=== PATIENT | female | born 1950 | race Caucasian/White ===

== ENCOUNTER 2024-07-27 23:12 | Emergency (ER) | payer MEDICARE, MEDICAID ==
[~2024-07-27] VITALS: Ht 157.5 cm; Wt 64.0 kg
[2024-07-27 23:22] VITALS: TEMP 98.2; O2SAT 96
[2024-07-28 00:52] LABS: HEMATOCRIT. 41.1 % (36.0-48.0); HEMOGLOBIN. 13.6 g/dL (12.0-16.0); MEAN CORPUSCULAR HEMOGLOBIN 30.8 pg (28.0-32.0); MEAN CORPUSCULAR HGB CONC 33.1 g/dL (31.0-37.0); MEAN CORPUSCULAR VOLUME 92.9 fL (81.0-99.0); MEAN PLATELET VOLUME 9.6 fl (7.4-10.4); PLATELET 175 x1000/uL (130-400); RED BLOOD CELL COUNT 4.43 mill/uL (4.2-5.4); RED CELL DISTRIBUTION WIDTH 13.8 % (11.6-14.6); WHITE BLOOD COUNT 11.9 x1000/uL (4.5-11.0)
[2024-07-28 00:55] LABS: DIFFERENTIAL COMMENT 1
[2024-07-28 00:57] LABS: CHLORIDE 104 mEq/L (98-107); POTASSIUM 4.1 mEq/L (3.5-5.1); SODIUM 139 mEq/L (136-145)
[2024-07-28 00:58] LABS: CALCIUM 9.8 mg/dL (8.7-10.4); CARBON DIOXIDE 23 mEq/L (21-32)
[2024-07-28 01:03] LABS: GLUCOSE 253 mg/dL (70-105); UREA NITROGEN BLOOD 17 mg/dL (9-23)
[2024-07-28 02:10] LABS: TROPONIN I HIGH SENSITIVITY < 4 ng/L (3.0-34)
[2024-07-28 02:11] LABS: ETHANOL BLOOD < 10 mg/dL (<10)
[2024-07-28 03:27] LABS: TROPONIN I HIGH SENSITIVITY < 4 ng/L (3.0-34)
[2024-07-28 04:03] VITALS: BP 175/88; PULSE 81; RESP 18; O2SAT 100
[2024-07-28 05:23] LABS: PLATELET ESTIMATE NORMAL
== END 2024-07-28 04:04 | disposition home or self-care (01) ==
LOC: ER 23:12
DX: T65.91XA Toxic effect of unspecified substance, accidental (unintentional), initial encounter (principal); R41.82 Altered mental status, unspecified; E11.9 Type 2 diabetes mellitus without complications; I10 Essential (primary) hypertension; Y92.89 Other specified places as the place of occurrence of the external cause
CPT/HCPCS: 36415; 80048; 80320; 83605; 84484; 85025; 99283; G0480